=== PATIENT | male | born 1995 | race Caucasian/White ===

== ENCOUNTER 2018-10-28 11:54 | Emergency (ER) | payer MEDICAID, OTHER ==
[~2018-10-28] VITALS: Ht 175.3 cm; Wt 99.9 kg
[2018-10-28 11:57] VITALS: Ht 175.3 cm; Wt 99.9 kg
[2018-10-28] MEDS ORDERED: BACITRACIN 0.9 GM OINT TOP ONE (12:30)
[2018-10-28] MEDS ORDERED: LIDOCAINE 1% (MDV) 20 ML INJ SC ONE (12:30)
--- NOTE | 2018-10-28 12:42 | ERD ---
ER Documentation Chief Complaint Chief Complaint laceration w/knife pressure dressing in place HPI 23-year-old male presents with complaint of laceration to his second left finger after playing with a knife this morning. States that the knife was clean and non-dirty. Patient denies any numbness, tingling, impaired range of motion, foreign bodies in the wound. States he is up-to-date on his tetanus. Denies any current pain. Denies any current bleeding. ROS All systems reviewed and are negative except as per history of present illness. Medications Home Meds Active Scripts Bacitracin* (Bacitracin Oint (UD)*) 1 Applic Oint, 1 APPLIC TOP BID, #20 PKT APPLY TO Prov:MAGALI KEN 10/28/18 Allergies Allergies: Coded Allergies: No Known Drug Allergies (Verified Allergy, 02/11/11) PMhx/Soc History of Surgery: Yes (KIDNEY TUBE) Anesthesia Reaction: No Hx Neurological Disorder: No Hx Respiratory Disorders: No Hx Cardiac Disorders: No Hx Psychiatric Problems: No Hx Miscellaneous Medical Probl: No Hx Alcohol Use: No Hx Substance Use: No Hx Tobacco Use: No FmHx Family History: No diabetes, No coronary disease, No other Physical Exam Vitals Vital Signs Date Temp Pulse Resp B/P (MAP) Pulse Ox O2 O2 Flow FiO2 Time Delivery Rate 10/28/18 98.7 84 18 140/71 99 11:57 (94) Physical Exam Const: No acute distress Head: Atraumatic Eyes: Normal Conjunctiva ENT: Normal External Ears, Nose and Mouth. Neck: Full range of motion. No meningismus. Resp: Clear to auscultation bilaterally Cardio: Regular rate and rhythm, no murmurs Abd: Soft, non tender, non distended. Normal bowel sounds Skin: No petechiae or rashes Back: No midline or flank tenderness Ext: No cyanosis, or edema Neur: Awake and alert Psych: Normal Mood and Affect Second left digit: Approximately 1 cm laceration noted to the second left digit. There is no evidence of foreign bodies. There is full range of motion of finger and all sensation is intact. There is no active bleeding. Results 24 hrs Current Medications Medications Dose Sig/Sheryl Start Time Status Last (Trade) Ordered Route PRN Stop Time Admin Dose Reason Admin Bacitracin 1 applic ONCE ONCE 10/28/18 DC (Bacitracin TOP 12:30 10/28/18 Oint (Ud)) 12:32 Lidocaine 20 ml ONCE ONCE 10/28/18 DC (Xylocaine SC 12:30 10/28/18 1% (Mdv) 20 12:32 ml) Procedures/MDM MDM: Laceration Repair by me: Anesthesia: 1% lidocaine locally Location: Second left finger Tendon/Joint/Nerves: No injury Foreign body: None detected after copious irrigation and exploration Technique: Simple Interrupted Sutures Complexity: No subcutaneous sutures/mucosal repair/edge excision Post Closure Length: 1 cm Patient's bleeding was easily controlled in the department and there is no indication of anemia. No evidence of compartment syndrome, neurologic injury, vascular injury, open joint, tendon laceration, or foreign body. Patient is appropriate for outpatient follow up. 48 hour wound check. Scar minimization instructions given. Patient's laceration was successfully repaired using the above technique. There is absolutely no evidence of any kind of neurovascular compromise. The cut was done while playing with a knife there is no indication that there is a fracture so x-rays were not necessary. Patient is voicing about 48 hours for wound check. At this time of low suspicion of neurovascular compromise, tendon laceration, retained foreign body, uncontrolled bleed, or infection. Patient given Rx bacitracin advised to wipe twice a day. At this time, patient is stable for discharge and outpatient management. I have instructed the patient to follow-up with his/her primary care physician in 1-2 days. I have discussed with the patient the possibility of needing to see a specialist for further workup and imaging studies if symptoms persist. I have instructed the patient to promptly return to the ER for any new or worsening symptoms including but not limited to increased pain, fever, nausea, vomiting, weakness or LOC. The patient and/or family expressed understanding of and agreement with this plan. All questions were answered. Home care instructions were provided. DISCLAIMER: Inadvertent spelling and grammatical errors are likely due to EHR/dictation software use and do not reflect on the overall quality of patient care. Also, please note that the electronic time recorded on this note does not necessarily reflect the actual time of the patient encounter. Departure Diagnosis: Primary Impression: Laceration Condition: Stable MAGALI KEN Oct 28, 2018 12:42
[2018-10-28] MEDS ORDERED: BACITUD TOP (13:23)
[2018-10-28] MEDS ORDERED: DIPHTH/TET/ACEL PERTUSS (ADULT) 0.5 ML VIAL IM* ONE (14:30)
[2018-10-28 14:37] VITALS: BP 128/68; PULSE 68; RESP 18
== END 2018-10-28 14:42 | disposition home or self-care (01) ==
LOC: FTE 11:54
DX: S61.211A Laceration without foreign body of left index finger without damage to nail, initial encounter (principal); W26.0XXA Contact with knife, initial encounter; Y92.9 Unspecified place or not applicable; Z23 Encounter for immunization
CPT/HCPCS: 12001; 90471; 90715; Z7502; Z7610

== ENCOUNTER 2018-10-31 11:27 | Emergency (ER) | payer OTHER ==
[~2018-10-31] VITALS: Ht 180.3 cm; Wt 99.4 kg
[~2018-10-31 11:27] MED LIST: BACITUD TOP
[2018-10-31 11:36] VITALS: BP 128/60; PULSE 70; RESP 18; Ht 180.3 cm; Wt 99.4 kg
--- NOTE | 2018-10-31 12:24 | ERD ---
ER Documentation Chief Complaint Chief Complaint WOUND CHECK TO LEFT HAND; SUTURE PLACED IN 2 DAYS AGO HPI 23-year-old male presenting for wound check to his left index finger. Patient cut himself with a knife 2 days ago. Patient had sutures placed. He denies any pain or lack of movement. [id number]. Up-to-date on vaccinations. Denies other medical problems. NKDA. Surgical history denies. Social history denies ROS All systems reviewed and are negative except as per history of present illness. Medications Home Meds Active Scripts Bacitracin* (Bacitracin Oint (UD)*) 1 Applic Oint, 1 APPLIC TOP BID, #20 PKT APPLY TO Prov:MAGALI KEN 10/28/18 Allergies Allergies: Coded Allergies: No Known Drug Allergies (Verified Allergy, 02/11/11) PMhx/Soc History of Surgery: Yes (KIDNEY TUBE) Anesthesia Reaction: No Hx Neurological Disorder: No Hx Respiratory Disorders: No Hx Cardiac Disorders: No Hx Psychiatric Problems: No Hx Miscellaneous Medical Probl: Yes (high functioning autism) Hx Alcohol Use: No Hx Substance Use: No Hx Tobacco Use: No Smoking Status: Never smoker FmHx Family History: No diabetes, No coronary disease, No other Physical Exam Vitals Vital Signs Date Temp Pulse Resp B/P (MAP) Pulse Ox O2 O2 Flow FiO2 Time Delivery Rate 10/31/18 97.2 70 18 128/60 99 11:36 (82) Physical Exam GENERAL: The patient is well-appearing, well-nourished, in no acute distress CHEST: Clear to auscultation bilaterally. There are no rales, wheezes or rhonchi. HEART: Regular rate and rhythm. No murmurs, clicks, rubs or gallops. EXTREMITIES: Normal flexion and extension. No limitations and no laxity. No swelling. No tenderness to palpation. NEUROLOGIC: Alert and oriented. Motor strength in all 4 extremities with 5 out of 5 strength. Sensation grossly intact. SKIN: healing laceration visible on exam. 4 sutures intact with no surrounding erythema or dehiscence. No purulence. No erythema. Procedures/MDM MDM: 23-year-old male presenting for wound check. Patient's wound is healing appropriately. Patient is told to leave the wound open to air to dry out. I have low suspicion for tendon or ligament injury. I have low suspicion for infectious process. Patient is discharged with strict ER [id number] and told to return if symptoms change or worsen, all questions answered at discharge. Departure Diagnosis: Primary Impression: Visit for wound check Condition: Stable Patient Instructions: Wound Care Referrals: [facility] YOU HAVE RECEIVED A MEDICAL SCREENING EXAM AND THE RESULTS INDICATE THAT YOU DO NOT HAVE A CONDITION THAT REQUIRES URGENT TREATMENT IN THE EMERGENCY DEPARTMENT. FURTHER EVALUATION AND TREATMENT OF YOUR CONDITION CAN WAIT UNTIL YOU ARE SEEN IN YOUR DOCTORS OFFICE WITHIN THE NEXT 1-2 DAYS. IT IS YOUR RESPONSIBILITY TO MAKE AN APPOINTMENT FOR FOLOW-UP CARE. IF YOU HAVE A PRIMARY DOCTOR --you should call your primary doctor and schedule an appointment IF YOU DO NOT HAVE A PRIMARY DOCTOR YOU CAN CALL OUR PHYSICIAN REFERRAL HOTLINE AT IF YOU CAN NOT AFFORD TO SEE A PHYSICIAN YOU CAN CHOSE FROM THE FOLLOWING FORMERLY [facility] [address] [facility] [address] [facility] [address] [facility] [address] [facility] [address] [facility]. [address] Additional Instructions: FOLLOW UP WITH YOUR PRIMARY CARE PHYSICIAN TOMORROW.Return to this facility if you are not improving as expected. AUTUMN GRIFFITHS PA-C Oct 31, 2018 12:24
== END 2018-10-31 12:24 | disposition home or self-care (01) ==
LOC: FTE 11:27
DX: Z48.01 Encounter for change or removal of surgical wound dressing (principal)
CPT/HCPCS: 99281

== ENCOUNTER 2018-11-06 15:14 | Emergency (ER) | payer OTHER ==
[~2018-11-06] VITALS: Wt 81.8 kg
[2018-11-06 15:17] VITALS: BP 133/58; PULSE 81; RESP 20
--- NOTE | 2018-11-06 15:44 | ERD ---
ER Documentation Chief Complaint Chief Complaint suture removal HPI This is a 23-year-old male who presents to the ED for suture removal. Patient was seen here on October 28, 2018 for laceration sustained to the lateral aspect of his left second digit. 4 sutures were replaced and patient was prescribed antibiotic ointment. He was discharged home and returns again today for suture removal. He denies any pus discharge. Denies any fevers or chills. Denies any increased swelling. He does report subjective numbness to the distal aspect of his finger but has full range of motion. No new injuries. ROS All systems reviewed and are negative except as per history of present illness. Medications Home Meds Active Scripts Bacitracin* (Bacitracin Oint (UD)*) 1 Applic Oint, 1 APPLIC TOP BID, #20 PKT APPLY TO Prov:JEFFMICKY SANTOYOEL 10/28/18 Allergies Allergies: Coded Allergies: No Known Drug Allergies (Verified Allergy, 02/11/11) PMhx/Soc History of Surgery: Yes (KIDNEY TUBE) Anesthesia Reaction: No Hx Neurological Disorder: No Hx Respiratory Disorders: No Hx Cardiac Disorders: No Hx Psychiatric Problems: No Hx Miscellaneous Medical Probl: Yes (high functioning autism) Hx Alcohol Use: No Hx Substance Use: No Hx Tobacco Use: No Physical Exam Vitals Vital Signs Date Temp Pulse Resp B/P (MAP) Pulse Ox O2 O2 Flow FiO2 Time Delivery Rate 11/06/18 98.6 81 20 133/58 99 15:17 (83) Physical Exam Const: No acute distress Head: Atraumatic Eyes: Normal Conjunctiva ENT: Normal External Ears, Nose and Mouth. Ext: + Proximally 1.5 cm healing laceration to the lateral aspect of the left second digit, [address], no dehiscence, no significant tenderness or swelling. Full flexion and extension at the PIP and DIP joint. Cap refill less than 2 seconds. Neur: Awake and alert Psych: Normal Mood and Affect Procedures/MDM PROCEDURES: Suture Removal by me: 4 Sutures removed with tweezers and scissors without incident. MEDICAL DECISION MAKIN-year-old male presents for suture removal status post laceration sustained 9 days ago. Patient has subjective numbness to the distal aspect of his finger, although he is neurovascularly intact on my exam. I have low suspicion for ischemic necrosis, tenosynovitis, sepsis or other deep space infection. Sutures were removed as above. Recommend gentle cleaning with mild soap and follow-up with hand specialist, outpatient referral was provided. Strict return precautions were discussed. PRESCRIPTIONS: None SPECIALIST FOLLOW UP RECOMMENDED: None Patient has been advised to follow up with primary care in 1-2 days. Departure Diagnosis: Primary Impression: Encounter for removal of sutures Condition: Stable Patient Instructions: Suture Removal, No Complication Referrals: [facility] Additional Instructions: You can gently clean the area with soap and water. He did not need any further work-up or imaging at this time. He continued to have some numbness, I provided referral to all of the hand clinic. Return here for any new or worsening symptoms. NELSON KUMARI PA-C Nov 06, 2018 15:44
== END 2018-11-06 15:30 | disposition home or self-care (01) ==
LOC: E/R 15:14
DX: Z48.02 Encounter for removal of sutures (principal)
CPT/HCPCS: 99281